=== PATIENT | male | born 1995 | race Caucasian/White ===

== ENCOUNTER 2016-09-28 01:39 | Emergency (ER) | payer OTHER ==
[2016-09-28 01:46] VITALS: RESP 18
--- NOTE | 2016-09-28 01:52 | EDPHY ---
H & P Stated Complaint: slip on ice r ankle pain Time Seen by Provider: 09/28/16 01:48 HPI/ROS: Chief complaint: Right ankle pain HPI: 20-year-old male states he slipped on ice in inverted his right ankle. This happened about an hour to ago. He has been able to weight bear on it since. No prior injuries. No numbness or tingling. Is having pain in his lateral right ankle. No foot pain. Denies any other injuries at this time. ROS: 10 point Review of Systems is negative except as noted in the HPI. Past medical history: None Medications: None Allergies: No known drug allergies Physical exam: General: Awake, alert, no acute distress Right ankle: There is swelling over the right lateral malleolus. There is moderate malleolar tenderness with a anterior talofibular tenderness of well. There is no medial tenderness. There is no effusion. He has full range of motion without pain. He is ambulating without any difficulty. He has no foot tenderness. There is no erythema. - Personal History Current Tetanus/Diphtheria Vaccine: Yes Current Tetanus Diphtheria and Acellular Pertussis (TDAP): Yes - Medical/Surgical History Hx Asthma: No Hx Chronic Respiratory Disease: No Hx Diabetes: No Hx Cardiac Disease: No Hx Renal Disease: No Hx Cirrhosis: No Hx Alcoholism: No Hx HIV/AIDS: No Hx Splenectomy or Spleen Trauma: No - Social History Smoking Status: Never smoked Constitutional: Initial Vital Signs Temperature (C) 36.4 C 09/28/16 01:42 Heart Rate 85 09/28/16 01:42 Respiratory Rate 18 09/28/16 01:42 Blood Pressure 123/73 H 09/28/16 01:42 O2 Sat (%) 94 09/28/16 01:42 O2 Delivery Mode Room Air Allergies/Adverse Reactions: No Known Allergies Allergy (Unverified 09/28/16 01:42) Home Medications: Medication Instructions Recorded NK [No Known Home Meds] 09/28/16 Medical Decision Making - Diagnostics Imaging: Right ankle x-ray: Negative for acute fracture per my interpretation. Departure - Departure Disposition: Home, Routine, Self-Care Clinical Impression: Ankle sprain Condition: Good Instructions: Ankle Sprain (ED) Additional Instructions: Follow up with her primary care physician in 3-4 days if you're still having pain. Referrals: RAZA SIMON [Other] - As per Instructions
[2016-09-28 02:59] VITALS: BP 141/82; PULSE 92; TEMP 98.4; O2SAT 95
== END 2016-09-28 03:01 | disposition home or self-care (01) ==
DX: S93.401A Sprain of unspecified ligament of right ankle, initial encounter (principal); W18.49XA Other slipping, tripping and stumbling without falling, initial encounter